=== PATIENT | female | born 1995 | race Caucasian/White ===

== ENCOUNTER 2019-01-21 09:51 | Emergency (ER) | payer MEDICAID ==
[2019-01-21] MEDS ORDERED: KETOROLAC 30 MG/1 ML SDV IVP ONE (10:05)
[2019-01-21] MEDS ORDERED: DEXAMETHASONE 10 MG/ML VIAL IVP ONE (10:05)
[2019-01-21] MEDS ORDERED: METOCLOPRAMIDE 10 MG/2 ML VIAL IVP ONE (10:05)
--- NOTE | 2019-01-21 10:05 | EDPHY ---
H & P Time Seen by Provider: 01/21/19 10:01 HPI/ROS: CHIEF COMPLAINT: Headache HISTORY OF PRESENT ILLNESS: The patient is a 23-year-old female with a history of fibromyalgia, depression, anxiety, chronic nerve pain who states that she has had muscle spasming in her neck and scalp that is causing chronic headache for the last 3-4 weeks. She also tells me that she has fallen down her stairs multiple times because she has chronic nerve pain from fibromyalgia. She has not received any imaging. She denies any focal weakness or numbness. No fevers. She states that she has also noticed some swelling in both hands. No vision or hearing changes. No bony neck pain. No bowel or bladder abnormalities. She tells me that she just went to [facility] emergency department but they just told her she was "crazy". Severity: Moderate Modifying factors: None REVIEW OF SYSTEMS: Constitutional: denies: chills, fever, recent illness, recent injury EENTM: denies: blurred vision, double vision, nose congestion Respiratory: denies: cough, shortness of breath Cardiac: denies: chest pain, irregular heart rate, lightheadedness, palpitations Gastrointestinal/Abdominal: denies: abdominal pain, diarrhea, nausea, vomiting, blood streaked stools Genitourinary: denies: dysuria, frequency, hematuria, pain Musculoskeletal: denies: joint pain, muscle pain Skin: denies: lesions, rash, jaundice, bruising Neurological: See HPI denies: numbness, paresthesia, tingling, dizziness, weakness Hematologic/Lymphatic: denies: blood clots, easy bleeding, easy bruising Immunologic/allergic: denies: HIV/AIDS, transplant 10 systems reviewed and negative except as noted EXAM: GENERAL: Well-appearing, well-nourished and in no acute distress. HEAD: Atraumatic, normocephalic. EYES: Pupils equal round and reactive to light, extraocular movements intact, sclera anicteric, conjunctiva are normal. ENT: TMs normal, nares patent, oropharynx clear without exudates. Moist mucous membranes. NECK: Normal range of motion, supple without lymphadenopathy or JVD. LUNGS: Breath sounds clear to auscultation bilaterally and equal. No wheezes rales or rhonchi. HEART: Regular rate and rhythm without murmurs, rubs or gallops. ABDOMEN: Soft, nontender, normoactive bowel sounds. No guarding, no rebound. No masses appreciated. BACK: No CVA tenderness, no spinal tenderness, step-offs or deformities EXTREMITIES: Normal range of motion, no pitting or edema. No clubbing or cyanosis. NEUROLOGICAL: Cranial nerves II through XII grossly intact. Normal speech, normal gait. 5/5 strength, normal movement in all extremities, normal sensation , normal reflexes PSYCH: Normal mood, normal affect. SKIN: Warm, dry, normal turgor, no visible rashes or lesions. Source: Patient Exam Limitations: No limitations - Medical/Surgical History Hx Asthma: No Hx Chronic Respiratory Disease: No Hx Diabetes: No Hx Cardiac Disease: No Hx Renal Disease: No Hx Cirrhosis: No Hx Alcoholism: No Hx HIV/AIDS: No Hx Splenectomy or Spleen Trauma: No Other PMH: fibromyalgia, stomach problems, anxiety, depression - Family History Significant Family History: No pertinent family hx - Social History Smoking Status: Current every day smoker Alcohol Use: None Constitutional: Initial Vital Signs Temperature (C) 36.6 C 01/21/19 10:12 Heart Rate 87 01/21/19 10:12 Respiratory Rate 18 01/21/19 10:12 Blood Pressure 133/96 H 01/21/19 10:12 O2 Sat (%) 96 01/21/19 10:12 O2 Delivery Mode Room Air Allergies/Adverse Reactions: baclofen Allergy (Verified 01/21/19 10:17) ondansetron [From Zofran] Allergy (Verified 01/21/19 10:17) promethazine Allergy (Verified 01/21/19 10:18) all antibiotics Allergy (Severe, Uncoded 01/21/19 10:16) Home Medications: Medication Instructions Recorded Celexa 06/07/15 H. Rivera Colon Aspartate 06/07/15 Omeprazole 06/07/15 PROMETHAZINE HCL 06/07/15 Diazepam [Valium 5 MG (*)] 5 mg PO TID PRN #15 tab 01/21/19 Medical Decision Making - Diagnostics Imaging Results: Imaging Impressions Head CT 01/21/19 10:05 Impression: No acute intracranial findings. Findings discussed with STEPHANE QUINTERO 01/21/2019 at 10:59. Cervical Spine CT 01/21/19 10:06 Impression: 1. No acute posttraumatic abnormality identified. If there is persistent pain or neurologic deficit, consider MRI and/or flexion and extension views if clinically indicated. 2. Congenital spinal narrowing and mild reversal of normal cervical lordosis without subluxation. Findings discussed with STEPHANE QUINTERO 01/21/2019 at 10:59. Imaging: Discussed imaging studies w/ corrugated sheet material sheeter Radiologist ED Course/Re-evaluation: 10:55 a.m. patient's lab work and CT are reassuring. She does not feel any better after Reglan and Toradol and IV fluids. Will treat with Valium for which she describes as neck muscle spasming. 12:00 p.m. the patient is feeling completely better. She is asking for prescription for Valium and referral to Neurology. She is happy with this treatment and plan and is eager to go home. She declines further workup or testing discussed indications for returning. Differential Diagnosis: Partial list of the Differential diagnosis considered include but were not limited to; cervical spasming, fibromyalgia, anxiety, radiculopathy and although unlikely based on the history and physical exam, I also considered trauma, infection, cord injury. I discussed these differential diagnoses and the plan with the patient as well as the usual and expected course. The patient understands that the diagnosis is provisional and that in medicine we are not always correct and that further workup is often warranted. Usual and customary warnings were given. All of the patient's questions were answered. The patient was instructed to return to the emergency department should the symptoms at all worsen or return, otherwise to followup with the physician as we discussed. - Data Points Laboratory Results: 01/21/19 10:20 POC Sodium 143 mEq/L mEq/L (135-145) POC Potassium 3.3 mEq/L mEq/L (3.3-5.0) POC Chloride 107.0 mEq/L mEq/L (97-110) POC Total CO2 24 mEq/L mEq/L (22-31) POC BUN 11 mg/dL mg/dL (7-23) POC Creatinine 0.6 mg/dL mg/dL (0.6-1.0) POC Glucose 92 mg/dL mg/dL (70-100) POC Calcium 9.0 mg/dL mg/dL (8.5-10.4) Medications Given: Discontinued Medications Dexamethasone (Decadron Injection) 10 mg IVP EDNOW ONE Stop: 01/21/19 10:06 Last Admin: 01/21/19 10:30 Dose: 10 mg Diazepam (Valium) 5 mg IVP EDNOW ONE Stop: 01/21/19 10:54 Last Admin: 01/21/19 11:02 Dose: 5 mg Sodium Chloride (Ns) 1,000 mls @ 0 mls/hr IV EDNOW ONE; Wide Open PRN Reason: Protocol Stop: 01/21/19 10:08 Last Admin: 01/21/19 10:30 Dose: 1,000 mls Ketorolac Tromethamine (Toradol) 30 mg IVP EDNOW ONE Stop: 01/21/19 10:06 Last Admin: 01/21/19 10:31 Dose: 30 mg Metoclopramide HCl (Reglan Injection) 10 mg IVP EDNOW ONE Stop: 01/21/19 10:06 Last Admin: 01/21/19 10:30 Dose: 10 mg Point of Care Test Results: CBC CBC Collection Date 01/21/19 CBC Collection Time 10:15 WBC 8.92 RBC 5.19 HGB 13.4 HCT 41.4 PLT 221 Neut # 5.36 Neut 60.1 LYMPH # 2.45 LYMPH 27.5 MCV 79.8 Chemistry 01/21/19 10:20 POC Sodium 143 mEq/L mEq/L (135-145) POC Potassium 3.3 mEq/L mEq/L (3.3-5.0) POC Chloride 107.0 mEq/L mEq/L (97-110) POC Total CO2 24 mEq/L mEq/L (22-31) POC BUN 11 mg/dL mg/dL (7-23) POC Creatinine 0.6 mg/dL mg/dL (0.6-1.0) POC Glucose 92 mg/dL mg/dL (70-100) POC Calcium 9.0 mg/dL mg/dL (8.5-10.4) Departure - Departure Disposition: Home, Routine, Self-Care Clinical Impression: Cervical paraspinal muscle spasm Condition: Fair Instructions: Muscle Spasm (ED) Referrals: Jazmyn Vance MD [Medical Doctor] - As per Instructions NONE *PRIMARY CARE P,. [Primary Care Provider] - As per Instructions Kavon Granados DO [Medical Doctor] - 5-7 days, call for appt. Prescriptions: Diazepam [Valium 5 MG (*)] 5 mg PO TID PRN #15 tab PRN Reason: Spasms
[2019-01-21] MEDS ORDERED: NS 1,000 ML IV ONE (10:07)
[2019-01-21] MEDS ORDERED: DIAZEPAM 10 MG/2 ML SYR IVP ONE (10:53)
[2019-01-21 12:10] VITALS: BP 111/52
== END 2019-01-21 12:32 | disposition home or self-care (01) ==
LOC: CED 09:51
DX: M62.838 Other muscle spasm (principal); M79.7 Fibromyalgia
CPT/HCPCS: 70450-PO; 72125-PO; 80048-ER; 85025-QW-ER; 96374-ER; 96375-ER; 99285-ER; J1100; J1885; J2765; J3360

== ENCOUNTER 2019-01-23 16:33 | Emergency (ER) | payer MEDICAID ==
[2019-01-23 17:33] LABS: PLATELET COUNT 189 10^3/uL (150-400)
--- NOTE | 2019-01-23 17:59 | EDPHY ---
H & P Time Seen by Provider: 01/23/19 16:44 HPI/ROS: HPI Frequent falls, numbness in upper extremities, shaking movements. 23-year-old female by private vehicle with her roommate and friend. This patient was seen in our emergency department 2 days ago with complaint of headache. She had a negative CT noncontrast at that time. Her blood work was unremarkable. She returns to the emergency department stating that she has a possible history of myasthenia gravis as well as lupus. She reports that she has been having frequent falls that she attributes to some unknown neurologic condition. She reports that this is unusual for her. She reports that sometimes she has difficulty holding a cigarette. She also reports that she has intermittent numbness in both upper extremities. She saw neurology, Dr. Kavon Granados, yesterday. She tells me that he has ordered an MRI of her brain and cervical spine but she can't get this for another week. She reports that she is in pain from all of her frequent falls. She reports having chronic neck pain as well. She denies significant depression or suicidal ideation at this time. She declines behavioral health evaluation. 6:15 p.m., informed by Behavioral Health evaluate her low was the patient was specifically sent to the emergency department for a psychiatric evaluation by her primary care physician. She apparently climbed up on top of the roof of her apartment building 2 days ago was threatening to jump off telling bystanders that she wanted to kill herself. She was talked down by her roommate. ROS: Constitutional: No fever, no chills. As above. Eyes: No discharge. No changes in vision. ENT: No sore throat. No nasal congestion or rhinorrhea. Respiratory: No cough. No shortness of breath. Cardiac: No chest pain, no palpitations. Gastrointestinal: No abdominal pain, no vomiting, no diarrhea. Genitourinary: No hematuria. No dysuria or increased frequency with urination. Musculoskeletal: No back pain. As above. Skin: No rashes. Multiple abrasions and bruises were falls. Neurological: No headache. No focal weakness or altered sensation. Past medical history: Fibromyalgia, anxiety, depression, lupus, as above. Social history: Smoker. Smokes marijuana. Denies alcohol. Here with her roommate and friend. Physical Exam: General Appearance: Alert, she is not in distress but she is anxious. This patient is responding to questions appropriately and in full sentences. This patient appears well-hydrated and well-nourished. Eyes: Pupils equal and round no pallor or injection. No lid edema, erythema or injection. ENT, Mouth: Mucous membranes are moist. The pharyngeal tissues are unremarkable. No edema or swelling. No asymmetry suggestive of abscess. No erythema or exudates. No tongue lacerations or abrasions. Dentition intact. Respiratory: There are no retractions, lungs are clear to auscultation with good air movement bilaterally. Cardiovascular: Regular rate and rhythm. No murmur. Gastrointestinal: Abdomen is soft and nontender, no masses, bowel sounds normal. No focal tenderness at McBurney's point. No Serna sign. Neurological: Motor sensory function is grossly intact. Cranial nerves are normal. Cerebellar function is normal. Gait is normal. Skin: Warm and dry, no rashes. Multiple small bruises and superficial abrasions to left hip, anterior knees and upper extremities. Musculoskeletal: Neck is supple and nontender. No significant pain on flexion of her neck. Extremities are symmetrical. All joints range without pain or impingement. Psychiatric: No agitation. No depression. Database: EKG: Imaging: MRI of brain without contrast: Negative. Results discussed with staff radiologist Dr. Lazaro Neri. MRI of cervical spine without contrast: Negative. Results discussed with staff radiologist Dr. Lazaro Neri. Procedures: Emergency department course: Triage vital signs reviewed. She is moderately hypertensive. Vital signs are otherwise normal. She is afebrile. IV was placed from triage. Appropriate blood work sent for possible psychiatric evaluation. I discussed psychiatric evaluation with the patient. She does not want this done. She is concerned that she has to wait 1 week to get her MRIs as noted above. I do not appreciate any focality on her neurologic exam. However, given her complaints, we will obtain MRIs of the brain and cervical spine without contrast in the emergency department. 6:20 p.m., please see above under history of present illness, patient placed on a mental health hold. Security notified. [facility] is aware and will evaluate the patient when she returns from MRI. 7:30 p.m., patient re-evaluated. Results of MRI of brain and cervical spine discussed with her. I explained that we would have Behavioral Health evaluate her. Her questions were answered. [facility] notified the patient is medically cleared for behavioral health evaluation. 8:30 p.m., the patient was seen and evaluated by Behavioral Health. She was cleared by Dr. Hughes of the psychiatry service for outpatient follow-up. She is not suicidal. I am in agreement with this plan. Follow-up and return to emergency department precautions were reviewed with her. All of her questions were answered. She was discharged from the emergency department in good condition with friends. Differential Diagnosis: The differential diagnosis on this patient includes but is not limited to anxiety reaction, history of multiple falls. MS, CVA, lupus exacerbation, myasthenia gravis unlikely. This represents a partial list of diagnoses considered. These considerations are based on history, physical exam, past history, reassessment and diagnostic testing. Smoking Status: Current every day smoker Constitutional: Initial Vital Signs Temperature (C) 36.9 C 01/23/19 16:41 Heart Rate 91 01/23/19 16:41 Respiratory Rate 16 01/23/19 16:41 Blood Pressure 163/106 H 01/23/19 16:41 O2 Sat (%) 95 01/23/19 16:41 O2 Delivery Mode Room Air Allergies/Adverse Reactions: baclofen Allergy (Verified 01/23/19 16:39) ondansetron [From Zofran] Allergy (Verified 01/23/19 16:39) promethazine Allergy (Verified 01/23/19 16:39) all antibiotics Allergy (Severe, Uncoded 01/23/19 16:39) Home Medications: Medication Instructions Recorded Omeprazole 06/07/15 Diazepam [Valium 5 MG (*)] 5 mg PO TID PRN #15 tab 01/21/19 Celebrex 01/23/19 Hydroxychloroquine Sulfate 01/23/19 Lexapro 01/23/19 Lyrica 01/23/19 Medical Decision Making - Data Points Laboratory Results: Laboratory Results 01/23/19 17:15 01/23/19 17:15 Medications Given: Discontinued Medications Lorazepam (Ativan Injection) 1 mg IVP EDNOW ONE Stop: 01/23/19 18:07 Last Admin: 01/23/19 18:09 Dose: 1 mg Departure - Departure Disposition: Home, Routine, Self-Care Clinical Impression: Anxiety reaction, Fall from ground level, Neck pain Condition: Good Instructions: Anxiety (ED), Neck Pain (ED) Additional Instructions: Read and follow provided instructions. Follow-up as instructed by Behavioral Health. Follow-up with your primary care physician in 1-2 days for re-evaluation. Return to the emergency department for worsening pain, depression, suicidal thoughts or other serious concerns. Referrals: Jessica Mora DO [Primary Care Provider] - As per Instructions [facility] [Outside] - As per Instructions
[2019-01-23] MEDS ORDERED: LORazepam 2 MG/ML INJ IVP ONE (18:06)
[2019-01-23 21:32] VITALS: BP 159/112
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
--- NOTE | 2019-01-23 22:24 | ASMTTCLDSP ---
TLC Discharge Disposition Disposition Notes: Notes: In consultation with [facility] ED physician, Michelet Virk MD and on-call Psychiatrist, Dr Sami Hughes MD, both concurred that pt does not appear to meet 27-65 criteria requiring psychiatric hospitalization as pt does not appear to be at risk of harm to self/others or gravely disabled due to a mental illness condition. Pt verbalized an ability to keep herself safe and denied any suicidal thoughts. Per collaterals of a friend, Valente Lamb and roommate Aayush Taylor both indicated they are willing to provide extra emotional support to pt and assist her with linking to mental health outpt services. Both roommate and friend did not express any concerns about pt.s safety if discharged. Pt indicated a willingness to f/u with mental health services. Pt was provided with referral to [facility]. Pt was also referred to Crisis Services and provided with brochure After an Attempt. Was patient given the Answers: Not applicable Inpatient Behavioral Health Prohibited Belongings List while in the ED? Date Signed: 01/23/2019 10:23 PM Electronically Signed By:Aide Green
== END 2019-01-23 21:32 | disposition home or self-care (01) ==
DX: M54.2 Cervicalgia (principal); F41.9 Anxiety disorder, unspecified; M79.7 Fibromyalgia
CPT/HCPCS: 70551-PN; 80305; 96374; G0480; J2060

== ENCOUNTER 2019-02-01 08:21 | Emergency (ER) | payer MEDICAID ==
--- NOTE | 2019-02-01 08:50 | EDPHY ---
H & P Stated Complaint: ankle/knee pain Time Seen by Provider: 02/01/19 08:47 HPI/ROS: CHIEF COMPLAINT: Right knee and hip pain HISTORY OF PRESENT ILLNESS: The patient is a 23-year-old female with a history of fibromyalgia, anxiety, depression, arthritis, questionable lupus as well as frequent falls and headaches and neck pain. She was seen by me earlier this month and again by my colleague and had negative CT and MRI of her neck. These were all negative. She states that she fell down her stairs again last night and is now complaining of right knee and hip pain. She has fallen down her stairs multiple times. She has been seen by Neurology who has an EEG pending. She denies seizure-like activity yesterday or today. Severity: Moderate Modifying factors: None REVIEW OF SYSTEMS: Constitutional: denies: chills, fever, recent illness, recent injury EENTM: denies: blurred vision, double vision, nose congestion Respiratory: denies: cough, shortness of breath Cardiac: denies: chest pain, irregular heart rate, lightheadedness, palpitations Gastrointestinal/Abdominal: denies: abdominal pain, diarrhea, nausea, vomiting, blood streaked stools Genitourinary: denies: dysuria, frequency, hematuria, pain Musculoskeletal: denies: joint pain, muscle pain Skin: denies: lesions, rash, jaundice, bruising Neurological: denies: headache, numbness, paresthesia, tingling, dizziness, weakness Hematologic/Lymphatic: denies: blood clots, easy bleeding, easy bruising Immunologic/allergic: denies: HIV/AIDS, transplant 10 systems reviewed and negative except as noted EXAM: GENERAL: Well-appearing, well-nourished and in no acute distress. HEAD: Atraumatic, normocephalic. EYES: Pupils equal round and reactive to light, extraocular movements intact, sclera anicteric, conjunctiva are normal. ENT: TMs normal, nares patent, oropharynx clear without exudates. Moist mucous membranes. NECK: Normal range of motion, supple without lymphadenopathy or JVD. LUNGS: Breath sounds clear to auscultation bilaterally and equal. No wheezes rales or rhonchi. HEART: Regular rate and rhythm without murmurs, rubs or gallops. ABDOMEN: Soft, nontender, normoactive bowel sounds. No guarding, no rebound. No masses appreciated. BACK: No CVA tenderness, no spinal tenderness, step-offs or deformities EXTREMITIES: Normal range of motion, no pitting or edema. No clubbing or cyanosis. No laxity an anterior posterior drawer or lateral stress, ambulates without difficulty NEUROLOGICAL: Cranial nerves II through XII grossly intact. Normal speech, normal gait. 5/5 strength, normal movement in all extremities, normal sensation , normal reflexes PSYCH: Normal mood, normal affect. SKIN: Warm, dry, normal turgor, no visible rashes or lesions. Source: Patient Exam Limitations: No limitations - Personal History LMP (Females 10-55): 1-7 Days Ago Current Tetanus/Diphtheria Vaccine: Yes Current Tetanus Diphtheria and Acellular Pertussis (TDAP): Yes - Medical/Surgical History Hx Asthma: No Hx Chronic Respiratory Disease: No Hx Diabetes: No Hx Cardiac Disease: No Hx Renal Disease: No Hx Cirrhosis: No Hx Alcoholism: No Hx HIV/AIDS: No Hx Splenectomy or Spleen Trauma: No Other PMH: fibromyalgia, stomach problems, anxiety, depression, lupus, osteo arthritis - Family History Significant Family History: No pertinent family hx - Social History Smoking Status: Current every day smoker Alcohol Use: Sober Drug Use: None Constitutional: Initial Vital Signs Temperature (C) 37.3 C 02/01/19 08:36 Heart Rate 95 02/01/19 08:36 Respiratory Rate 18 02/01/19 08:36 Blood Pressure 137/91 H 02/01/19 08:36 O2 Sat (%) 97 02/01/19 08:36 O2 Delivery Mode Room Air Allergies/Adverse Reactions: baclofen Allergy (Verified 02/01/19 08:34) ondansetron [From Zofran] Allergy (Verified 02/01/19 08:34) promethazine Allergy (Verified 02/01/19 08:34) all antibiotics Allergy (Severe, Uncoded 01/23/19 16:39) Home Medications: Medication Instructions Recorded Omeprazole 06/07/15 Diazepam [Valium 5 MG (*)] 5 mg PO TID PRN #15 tab 01/21/19 Celebrex 01/23/19 Hydroxychloroquine Sulfate 01/23/19 Lexapro 01/23/19 Lyrica 01/23/19 Medical Decision Making - Diagnostics Imaging Results: Imaging Impressions Hip X-Ray 02/01/19 08:49 Impression: No acute osseous findings. Knee X-Ray 02/01/19 08:49 Impression: No acute osseous findings. Imaging: Discussed imaging studies w/ house calls nurse practitioner Radiologist ED Course/Re-evaluation: Patient is concerned about her right knee and hip. No sign of significant injury. She is ambulating. She has a pattern consistent with possibly being a hypochondriac. She has multiple vague illnesses in injuries. She does have a history of depression and was evaluated a few weeks ago for suicidality. She does not seem depressed today. We agreed to perform x-rays of her hip and knee. 9:20 p.m. X-rays reassuring. No laxity or clinical sign of ligamentous injury. She is ambulatory. We discussed ice and anti-inflammatories and will place and Alfred wrap. Differential Diagnosis: Partial list of the Differential diagnosis considered include but were not limited to; anxiety, contusion, strain and although unlikely based on the history and physical exam, I also considered fracture, syncope, seizure, CVA, MS. I discussed these differential diagnoses and the plan with the patient as well as the usual and expected course. The patient understands that the diagnosis is provisional and that in medicine we are not always correct and that further workup is often warranted. Usual and customary warnings were given. All of the patient's questions were answered. The patient was instructed to return to the emergency department should the symptoms at all worsen or return, otherwise to followup with the physician as we discussed. Departure - Departure Disposition: Home, Routine, Self-Care Clinical Impression: Contusion Qualifiers: Encounter type: initial encounter Contusion area: knee Laterality: right Qualified Code(s): S80.01XA - Contusion of right knee, initial encounter Right knee pain Qualifiers: Chronicity: acute Qualified Code(s): M25.561 - Pain in right knee Condition: Fair Instructions: Knee Pain (ED) Referrals: Jessica Mora DO [Primary Care Provider] - As per Instructions Ja Green MD [Medical Doctor] - As per Instructions
[2019-02-01 09:37] VITALS: BP 122/80
== END 2019-02-01 09:37 | disposition home or self-care (01) ==
LOC: CED 08:21
DX: S80.01XA Contusion of right knee, initial encounter (principal); M25.551 Pain in right hip; F41.9 Anxiety disorder, unspecified; M79.7 Fibromyalgia; W10.8XXA Fall (on) (from) other stairs and steps, initial encounter; Y92.009 Unspecified place in unspecified non-institutional (private) residence as the place of occurrence of the external cause
CPT/HCPCS: 73502-PO; 73562-PO; 99283-ER

== ENCOUNTER 2019-02-10 18:18 | Emergency (ER) | payer MEDICAID ==
--- NOTE | 2019-02-10 19:16 | EDPHY ---
H & P Time Seen by Provider: 02/10/19 18:20 HPI/ROS: 23-year-old female presents complaining of right ankle inversion injury. She states she stood up and could not initially feel her foot and inverted her ankle Review of systems General no fever no chills no weakness HEENT no eye pain no eye discharge. No eye redness, no sore throat Respiratory no cough, no shortness of breath Cardiac no chest pain, no peripheral edema GI no abdominal pain, no diarrhea, no constipation, no nausea, no vomiting no flank pain, no hematuria, no dysuria Musculoskeletal no myalgias, positive joint pain Heme no easy bruising, no easy bleeding Endo no polyuria, no polydipsia Skin no rashes, no pruritus Neuro no syncope, no dizziness, no headaches Psych is no suicidal ideation, no homicidal ideation Smoking Status: Current every day smoker Constitutional: Initial Vital Signs Temperature (C) 36.6 C 02/10/19 18:23 Heart Rate 83 02/10/19 18:23 Respiratory Rate 18 02/10/19 18:23 Blood Pressure 129/73 H 02/10/19 18:23 O2 Sat (%) 97 02/10/19 18:23 O2 Delivery Mode Room Air Allergies/Adverse Reactions: baclofen Allergy (Verified 02/10/19 18:23) ondansetron [From Zofran] Allergy (Verified 02/10/19 18:23) promethazine Allergy (Verified 02/10/19 18:23) all antibiotics Allergy (Severe, Uncoded 02/10/19 18:23) Home Medications: Medication Instructions Recorded Omeprazole 06/07/15 Diazepam [Valium 5 MG (*)] 5 mg PO TID PRN #15 tab 01/21/19 Celebrex 01/23/19 Hydroxychloroquine Sulfate 01/23/19 Lexapro 01/23/19 Lyrica 01/23/19 Departure - Departure Disposition: Home, Routine, Self-Care Clinical Impression: Right ankle sprain Condition: Good Instructions: Ankle Sprain (ED), Ankle Stirrup Splint (ED) Additional Instructions: rest , ice , elevation follow up with your primary care in the next 3-5 days Referrals: Jessica Mora DO [Primary Care Provider] - As per Instructions
--- NOTE | 2019-02-10 19:42 | EDPHY ---
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 arrives on crutches. Review of systems General no fever no chills no weakness HEENT no eye pain no eye discharge. No eye redness, no sore throat Respiratory no cough, no shortness of breath Cardiac no chest pain, no peripheral edema GI no abdominal pain, no diarrhea, no constipation, no nausea, no vomiting no flank pain, no hematuria, no dysuria Musculoskeletal no myalgias, positive joint pain Heme no easy bruising, no easy bleeding Endo no polyuria, no polydipsia Skin no rashes, no pruritus Neuro no syncope, no dizziness, no headaches Psych is no suicidal ideation, no homicidal ideation Source: Patient Exam Limitations: No limitations - Personal History LMP (Females 10-55): 1-7 Days Ago - Medical/Surgical History Hx Asthma: No Hx Chronic Respiratory Disease: No Hx Diabetes: No Hx Cardiac Disease: No Hx Renal Disease: No Hx Cirrhosis: No Hx Alcoholism: No Hx HIV/AIDS: No Hx Splenectomy or Spleen Trauma: No Other PMH: fibromyalgia, stomach problems, anxiety, depression, lupus, osteo arthritis - Family History Significant Family History: No pertinent family hx - Social History Smoking Status: Current every day smoker Alcohol Use: Occasionally Drug Use: Other (Unknown) - Physical Exam Exam: 23-year-old female Alert and oriented in no acute distress nontoxic appearance afebrile Atraumatic normocephalic Extraocular muscles intact, anicteric Neck is supple Lungs clear to auscultation no respiratory distress Heart regular rate and rhythm without murmur rub or gallop Extremities no cyanosis clubbing or edema right Ankle-positive swelling positive ecchymosis positive tenderness to palpation at lateral malleolus, no instability, sensation intact, good capillary refill, dorsalis pedis and posterior tibialis intact Constitutional: Initial Vital Signs Temperature (C) 36.6 C 02/10/19 18:23 Heart Rate 83 02/10/19 18:23 Respiratory Rate 18 02/10/19 18:23 Blood Pressure 129/73 H 02/10/19 18:23 O2 Sat (%) 97 02/10/19 18:23 O2 Delivery Mode Room Air Allergies/Adverse Reactions: baclofen Allergy (Verified 02/10/19 18:23) ondansetron [From Zofran] Allergy (Verified 02/10/19 18:23) promethazine Allergy (Verified 02/10/19 18:23) all antibiotics Allergy (Severe, Uncoded 02/10/19 18:23) Home Medications: Medication Instructions Recorded Omeprazole 06/07/15 Diazepam [Valium 5 MG (*)] 5 mg PO TID PRN #15 tab 01/21/19 Celebrex 01/23/19 Hydroxychloroquine Sulfate 01/23/19 Lexapro 01/23/19 Lyrica 01/23/19 Medical Decision Making ED Course/Re-evaluation: Patient seen and evaluated for right ankle injury xray prelim neg imp right ankle sprain plan ankle stirrup instructions rest , ice, elevate Differential Diagnosis: Differential diagnosis considered but not limited to: Fibula fracture, tibia fracture, foot fracture, ankle sprain Departure - Departure Disposition: Home, Routine, Self-Care Clinical Impression: Right ankle sprain Condition: Good Instructions: Ankle Sprain (ED), Ankle Stirrup Splint (ED) Additional Instructions: rest , ice , elevation follow up with your primary care in the next 3-5 days Referrals: Jessica Mora, DO [Primary Care Provider] - As per Instructions
[2019-02-10 19:52] VITALS: BP 120/78
== END 2019-02-10 19:33 | disposition home or self-care (01) ==
LOC: CED 18:18
DX: S93.401A Sprain of unspecified ligament of right ankle, initial encounter (principal); M19.90 Unspecified osteoarthritis, unspecified site; M79.7 Fibromyalgia; X50.9XXA Other and unspecified overexertion or strenuous movements or postures, initial encounter
CPT/HCPCS: 73610-PO; 99283-ER; L4350-ER

== ENCOUNTER → 2019-03-04 | Outpatient (CLI) | payer MEDICAID | LOC: CIMAGING 14:23 ==